=== PATIENT | male | born 1975 | race Two or more races ===

== ENCOUNTER 2018-06-06 21:47 | Emergency (ER) | payer MEDICAID, OTHER ==
[~2018-06-06] VITALS: Ht 170.2 cm; Wt 72.6 kg
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
[2018-06-06] MEDS ORDERED: ONDANSETRON HCL/PF 4 MG/2 ML VIAL ONE (22:30)
[2018-06-06] MEDS ORDERED: ONDANSETRON HCL/PF 4 MG/2 ML VIAL IM ONE (22:30)
--- NOTE | 2018-06-06 23:18 | NUR ---
Patient is resting comfortably in bed with eyes closed. Easily aroused. VSS
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
[2018-06-07] MEDS ORDERED: AMOX/CLAVULANATE 875 MG TABLET PO ONE
[2018-06-07] MEDS ORDERED: AMOX/CLAVULANATE 875 MG TABLET ONE (00:15)
--- NOTE | 2018-06-07 00:25 | NUR ---
ADMINISTERED AUGMENTIN 875MG PO.
--- NOTE | 2018-06-07 00:41 | NUR ---
Pt IS RESTING COMFORTABLY IN BED. NO S/S OF ACUTE DISTRESS OR SOB NOTED.
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
[2018-06-07] MEDS ORDERED: ONDANSETRON HCL/PF 4 MG/2 ML VIAL ONE (02:45)
[2018-06-07] MEDS ORDERED: ONDANSETRON HCL/PF 4 MG/2 ML VIAL IM ONE (03:00)
--- NOTE | 2018-06-07 03:07 | NUR ---
ALL ORDERED MEDS GIVEN
--- NOTE | 2018-06-07 03:15 | NUR ---
Patient discharged to home in stable condition. Written and verbal after care instructions given. Patient verbalizes understanding of instruction. No s/s of acute distress or sob noted. vs stable. ID band removed. Patient in ER lobby waiting for taxi for transport.
[2018-06-07 03:40] VITALS: BP 120/82
== END 2018-06-07 03:41 | disposition home or self-care (01) ==
LOC: ER 21:49
DX: S02.81XA Fracture of other specified skull and facial bones, right side, initial encounter for closed fracture (principal); S02.40CA Maxillary fracture, right side, initial encounter for closed fracture; F10.129 Alcohol abuse with intoxication, unspecified; L40.9 Psoriasis, unspecified; Y90.9 Presence of alcohol in blood, level not specified; Y04.8XXA Assault by other bodily force, initial encounter; Y93.89 Activity, other specified; Y92.89 Other specified places as the place of occurrence of the external cause; Y99.8 Other external cause status
CPT/HCPCS: 70450-TC; 70486-TC; 72125-TC; A4606; J2405; Z7610